=== PATIENT | male | born 1980 | race Caucasian/White ===

== ENCOUNTER → 2018-05-12 | Outpatient (CLI) | payer OTHER ==
[2018-05-13 08:09] LABS: THRYOGLOBULIN ANTIBODIES (ATA) < 1.0 IU/mL (0.0-0.9); THYROGLOBULIN QUANTITATIVE 3.5 ng/mL (1.4-29.2)
== END ==
LOC: M LAB 10:57
PROVIDERS: ATTEND Internal Medicine Endocrinology, Diabetes & Metabolism
DX: E89.0 Postprocedural hypothyroidism (principal)

== ENCOUNTER → 2020-01-17 | Outpatient (CLI) | payer OTHER ==
[~2020-01-17] MED LIST: METHACHOLINE KIT (J7674) INH ONE
--- NOTE | 2020-01-31 14:06 | PFTRPT ---
Height: 74.00 Inches Weight: 200.00 Lbs BSA: 2.17 Diagnosis: R06.02 DATE OF STUDY: 01/17/2020 ORDERED BY: CELESTINE Johansen QUALITY: Study of excellent technical quality. PROCEDURE: Under protocol, methacholine was administered. At a dose of 10 mg or 63.875 CDUs, a 30% decline of the FEV1 was noted. PC of 4.90 is significant. Flow rates did return to baseline post-bronchodilator administration. IMPRESSION: Positive methacholine challenge study. MTDD
== END ==
LOC: M CARPUL 10:51
PROVIDERS: ATTEND Nurse Practitioner Adult Health
DX: R06.02 Shortness of breath (principal)

== ENCOUNTER → 2020-02-08 | Outpatient (CLI) | payer OTHER | LOC: M PAIN 08:56 | PROVIDERS: ATTEND Anesthesiology | DX: R29.90 Unspecified symptoms and signs involving the nervous system (principal) ==

== ENCOUNTER → 2020-02-13 | Outpatient (CLI) | payer OTHER | LOC: M LABSMTC 09:47 | PROVIDERS: ATTEND Anesthesiology | DX: Z01.812 Encounter for preprocedural laboratory examination (principal); Z20.828 Contact with and (suspected) exposure to other viral communicable diseases | CPT/HCPCS: C9803; U0003 ==

== ENCOUNTER → 2020-02-18 | Outpatient (CLI) | payer OTHER ==
[~2020-02-18] MED LIST changes: +LIDOCAINE 1% SDV 30ML VIAL As Ordered ONE; -METHACHOLINE KIT (J7674) INH ONE; +MIDAZOLAM INJ 2MG/2ML VIAL (J2250 PER 1MG) As Ordered ONE; +fentaNYL 100 MCG/2 ML INJECTION (J3010) As Ordered ONE
[2020-02-18 11:23] LABS: APPEARANCE, CSF CLEAR (CLEAR); COLOR, CSF COLORLESS (COLORLESS); CSF TUBE# CELL CNT TUBE 3
[2020-02-18 11:39] LABS: CSF TUBE# GLU TUBE 1; CSF TUBE# TP TUBE 1; GLUCOSE CSF 54 MG/DL (40-75); TOTAL PROTEIN,CSF 25 MG/DL (15-45)
== END ==
LOC: M PAIN 07:53
PROVIDERS: ATTEND Anesthesiology
DX: R29.818 Other symptoms and signs involving the nervous system (principal)
CPT/HCPCS: 36415; 62270; 82784; 82945; 83916; 84157; 87070; 87102; 87205; 87252; 87483; 88108; 88313; 89050; 99152; 99153; J2250; J3010